=== PATIENT | male | born 1985 | race Caucasian/White ===

== ENCOUNTER 2016-10-04 17:18 | Emergency (ER) | payer OTHER ==
[2016-10-04] MEDS ORDERED: HYDROmorphone 1 MG/ML Syringe IVPUSH ONE (17:33)
[2016-10-04] MEDS ORDERED: Sodium Chloride 0.9% 500 ML IV ONE (17:33)
[2016-10-04] MEDS ORDERED: Sodium Chloride 0.9% 10 ML Syringe FLUSH PRN (17:34)
[2016-10-04] MEDS ORDERED: Diphtheria,Pertussis(Acell),Tetanus Vaccine 0.5 ML SDV inactive IM ONE (17:34)
[2016-10-04] MEDS ORDERED: ceFAZolin 1 GM in Premix Bag 1 BAG IV ONE (17:46)
--- NOTE | 2016-10-04 18:27 | EDM.PDOC ---
ED HPI GENERAL MEDICAL PROBLEM - General Chief Complaint: Trauma Stated Complaint: LEFT HAND INJURY Time Seen by Provider: 10/04/16 17:30 Source of Information: Reports: Patient, RN Notes Reviewed - History of Present Illness INITIAL COMMENTS - FREE TEXT/NARRATIVE: 30-year-old male suffered table saw injury to left hand about 1 hour ago. He was working construction and the hand circular saw "bucked" with resultant multiple laceration injuries to fingers of the left hand. He is having quite severe pain. Unsure of last tetanus immunization. He has a deep laceration of the distal left middle finger and also large laceration injuries of the ring and small fingers of the left hand. No other injury from this incident. Healthy does not take any regular medications. Last meal about 6 hours ago. Left Hand Pain Score (Numeric/FACES): 9 - Related Data Allergies Allergy/AdvReac Type Severity Reaction Status Date / Time No Known Allergies Allergy Verified 10/04/16 17:33 Home Meds: Home Meds . [No Known Home Meds] 10/04/16 [History] Past Medical History - Past Health History Medical/Surgical History: Denies Medical/Surgical History Social & Family History - Tobacco Use Smoking Status *Q: Never Smoker Second Hand Smoke Exposure: No - Caffeine Use Caffeine Use: Reports: None - Recreational Drug Use Recreational Drug Use: No Review of Systems - Review of Systems Review Of Systems: See Below Mouth/Throat: Reports: No Symptoms Respiratory: Reports: No Symptoms Cardiovascular: Reports: No Symptoms GI/Abdominal: Denies: Nausea, Vomiting Musculoskeletal: Reports: Joint Pain (Middle ring and small fingers of left hand ) Neurological: Reports: Numbness (There is some numbness of the distal middle finger of the left hand) ED EXAM, GENERAL - Physical Exam Exam: See Below General Appearance: Alert, Moderate Distress Head: Atraumatic Neck: Supple Respiratory/Chest: No Respiratory Distress, Lungs Clear Cardiovascular: Regular Rate, Rhythm Extremities: Other (Deep laceration at the area of the DIP and proximal distal phalanx left middle finger, 3 cm jagged laceration volar aspect distal ring finger, jagged moderately deep laceration entire length of volar aspect small finger of the left hand) Neurological: Sensory/Motor Deficit (Unable to flex small finger left hand at the PIP and DIP joints), Other (Sensation intact to touch all distal fingers left hand) Course - Vital Signs Last Recorded V/S: Last Vital Signs Temp 97.5 F 10/04/16 17:29 Pulse 71 10/04/16 17:29 Resp 22 H 10/04/16 17:29 BP Pulse Ox 98 10/04/16 17:29 - Orders/Labs/Meds Orders: Active Orders 24 hr Category Date Time Status Peripheral IV Care [RC] . DIRECTED Care 10/04/16 17:34 Active Vaccines to be Administered [RC] PER UNIT ROUTINE Care 10/04/16 17:34 Active Hand Comp Min 3V Lt [CR] Stat Exams 10/04/16 17:41 Taken Sodium Chloride 0.9% [Saline Flush] Med 10/04/16 17:34 Active 10 ml FLUSH ASDIRECTED PRN Peripheral IV Insertion Adult [OM.PC] Stat Oth 10/04/16 17:33 Ordered Medication Orders Sodium Chloride (Saline Flush) 10 ml FLUSH ASDIRECTED PRN PRN Reason: Keep Vein Open Last Admin: 10/04/16 17:43 Dose: 10 ml Meds: Medications Generic Name Dose Route Start Last Admin Trade Name Freq PRN Reason Stop Dose Admin Sodium Chloride 10 ml 10/04/16 17:34 10/04/16 17:43 Saline Flush FLUSH 10 ml ASDIRECTED PRN Administration Keep Vein Open Discontinued Medications Generic Name Dose Route Start Last Admin Trade Name Freq PRN Reason Stop Dose Admin Diphtheria/Tetanus/Acell Pertussis 0.5 ml 10/04/16 17:34 10/04/16 17:59 Boostrix IM 10/04/16 17:35 0.5 ml .ONCE ONE Administration Hydromorphone HCl 1 mg 10/04/16 17:33 10/04/16 17:42 Dilaudid IVPUSH 10/04/16 17:34 1 mg ONETIME ONE Administration Sodium Chloride 500 mls @ 999 mls/hr 10/04/16 17:33 10/04/16 17:44 Normal Saline IV 10/04/16 18:03 999 mls/hr .BOLUS ONE Administration Cefazolin Sodium 2,000 mg/ 100 mls @ 100 mls/hr 10/04/16 17:34 10/04/16 18:35 Sodium Chloride IV 10/04/16 18:33 Not Given ONETIME ONE Cefazolin Sodium/Dextrose 1 gm 50 mls @ 100 mls/hr 10/04/16 17:46 10/04/16 17 :50 / Premix IV 10/04/16 18:15 100 mls/hr ONETIME ONE Administration - Re-Assessments/Exams Free Text/Narrative Re-Assessment/Exam: 10/04/16 18:55. X-rays of the left hand do show fracture with apparent saw penetration to the base of the distal phalanx left middle finger with resultant fracture extending distally and moderate angulation of the distal phalanx, no other fracture identified. X-rays have been pushed to [facility]. Thus this with Dr. Gama Hess marketing operations coordinator for Orthopedics. He will see patient at the ED as soon as we can get him there. Patient's last meal was about 6 hours ago. We will keep him nothing by mouth. We have given Dilaudid 1 mg IV and that has helped him quite a lot for pain. Given a DPT and also 1 g of Ancef IV. Sterile dressing is then applied. 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 Departure - Departure Time of Disposition: 18:37 Disposition: Home, Self-Care 01 Condition: Fair Clinical Impression: Fractured hand Qualifiers: Encounter type: initial encounter Fracture type: open Laterality: left Qualified Code(s): S62.92XB - Unspecified fracture of left wrist and hand, initial encounter for open fracture Flexor tendon laceration of finger with open wound Qualifiers: Encounter type: initial encounter Qualified Code(s): S56.129A - Laceration of flexor muscle, fascia and tendon of unspecified finger at forearm level, initial encounter - Discharge Information Referrals: PCP,None [Primary Care Provider] - Forms: ED Department Discharge Additional Instructions: Keep hand elevated during transport to [facility], go to the [place] ED directly and immediately, nothing to eat or drink en route. You will be seen at [facility] this evening by Dr. Gama Hess, Orthopedist. - My Orders Last 24 Hours: My Active Orders 10/04/16 17:33 Peripheral IV Insertion Adult [OM.PC] Stat 10/04/16 17:34 Peripheral IV Care [RC] . DIRECTED Vaccines to be Administered [RC] PER UNIT ROUTINE Sodium Chloride 0.9% [Saline Flush] 10 ml FLUSH ASDIRECTED PRN 10/04/16 17:41 Hand Comp Min 3V Lt [CR] Stat - Assessment/Plan Last 24 Hours: My Active Orders 10/04/16 17:33 Peripheral IV Insertion Adult [OM.PC] Stat 10/04/16 17:34 Peripheral IV Care [RC] . DIRECTED Vaccines to be Administered [RC] PER UNIT ROUTINE Sodium Chloride 0.9% [Saline Flush] 10 ml FLUSH ASDIRECTED PRN 10/04/16 17:41 Hand Comp Min 3V Lt [CR] Stat
[2016-10-04] MEDS ORDERED: HYDROmorphone 0.5 MG/0.5 ML Syringe IVPUSH ONE (19:28)
[2016-10-04] MEDS ORDERED: HYDROmorphone 0.5 MG/0.5 ML Syringe ONE (19:32)
[2016-10-04 19:39] VITALS: BP 112/75
--- NOTE | 2016-10-05 09:06 | CR ---
Left hand: Four views of the left hand were obtained. Comparison: No previous study. Soft tissue injury is seen within the third and fourth fingers. Comminuted fracture is identified with displacement involving the distal phalanx of third finger. Nondisplaced fracture is seen within the distal aspect of the distal phalanx of the fourth finger. No additional hand abnormality is appreciated. Impression: 1. Soft tissue injury and fractures involving the distal left third and fourth fingers. Diagnostic code #3
== END 2016-10-04 19:34 | disposition home or self-care (01) ==
LOC: JD.ED 17:18
DX: S62.92XB Unspecified fracture of left hand, initial encounter for open fracture (principal); S62.633A Displaced fracture of distal phalanx of left middle finger, initial encounter for closed fracture; S56.129A Laceration of flexor muscle, fascia and tendon of unspecified finger at forearm level, initial encounter; Z23 Encounter for immunization; W29.8XXA Contact with other powered hand tools and household machinery, initial encounter; Y92.69 Other specified industrial and construction area as the place of occurrence of the external cause; Y99.0 Civilian activity done for income or pay
CPT/HCPCS: 73130; 90471; 96361; 96374; 96375; 96376; 99284; J0690; J1170; J7040; J7050; 90715